=== PATIENT | female | born 1995 | race African-American/Black ===

== ENCOUNTER 2022-02-19 08:34 | Emergency (ER) | payer OTHER ==
[~2022-02-19] VITALS: Ht 177.8 cm; Wt 104.3 kg
== END 2022-02-19 17:11 | disposition home or self-care (01) ==
LOC: ER 08:34
DX: K52.9 Noninfective gastroenteritis and colitis, unspecified (principal); N39.0 Urinary tract infection, site not specified; E86.0 Dehydration; Z91.018 Allergy to other foods